=== PATIENT | female | born 1990 | race Caucasian/White ===

== ENCOUNTER 2017-04-15 14:19 | Inpatient (IN) | payer BC ==
[2017-04-15] MEDS ORDERED: Misoprostol 200 MCG Tab PO PRN (15:09)
[2017-04-15] MEDS ORDERED: Sodium Chloride 0.9% 10 ML Syringe FLUSH PRN (15:09)
[2017-04-15] MEDS ORDERED: Nalbuphine 10 MG/1 ML Vial IVPUSH PRN (15:09)
[2017-04-15] MEDS ORDERED: Carboprost Tromethamine 250 MCG/1 ML Amp IM PRN (15:09)
[2017-04-15] MEDS ORDERED: Butorphanol 1 MG/ML SDV IVPUSH PRN (15:09)
[2017-04-15] MEDS ORDERED: Sodium Chloride 0.9% 2.5 ML Syringe FLUSH PRN (15:09)
[2017-04-15] MEDS ORDERED: Lidocaine 1% 50 ML MDV INJECT PRN (15:09)
[2017-04-15] MEDS ORDERED: Water For Irrigation,Sterile 1,000 ML Container IRR PRN (15:09)
[2017-04-15] MEDS ORDERED: Methylergonovine 0.2 MG/1 ML Amp IM PRN (15:09)
[2017-04-15] MEDS ORDERED: Labetalol 100 MG/20 ML MDV IVPUSH PRN (15:14)
[2017-04-15] MEDS ORDERED: Oxytocin/Lactated Ringers 30 UNIT/500 ML BAG IV SCH ×2 (15:15→15:30)
[2017-04-15] MEDS ORDERED: Terbutaline 1 MG/ML SDV SUBCUT PRN (15:19)
[2017-04-15] MEDS ORDERED: Misoprostol 25 MCG (1/4 of 100 MCG) Tab VAG PRN (15:19)
[2017-04-15] MEDS ORDERED: Misoprostol 25 MCG (1/4 of 100 MCG) Tab VAG SCH (15:30)
[2017-04-15] MEDS: Lactated Ringers 1,000 ML IV SCH (22:00)
[2017-04-16] MEDS: Lactated Ringers 1,000 ML IV SCH ×3 (04:29→14:31)
[2017-04-16] MEDS ORDERED: fentaNYL 100 MCG/2 ML SDV ONE (10:49)
[2017-04-16] MEDS ORDERED: Ropivacaine 0.2% 2 MG/ML 20 ML SDV ONE (10:50)
--- NOTE | 2017-04-16 11:53 | PCM.PREANE ---
Preanesthetic Assessment - Anesthesia/Transfusion/Family Hx Anesthesia History: No Prior Anesthesia Family History of Anesthesia Reaction: No Transfusion History: No Prior Transfusion(s) - Review of Systems General: No Symptoms Pulmonary: No Symptoms Cardiovascular: No Symptoms Gastrointestinal: No symptoms Neurological: No Symptoms Other: Reports: None - Physical Assessment NPO Status Date: 04/16/17 NPO Status Time: 11:41 (cl liquids) Height: 1.68 m Weight: 82.554 kg ASA Class: 2 Mental Status: Alert & Oriented x3 Airway Class: Mallampati = 2 Dentition: Reports: Normal Dentition Thyro-Mental Finger Breadths: 3 Mouth Opening Finger Breadths: 3 ROM/Head Extension: Full Lungs: Clear to auscultation, Normal respiratory effort Cardiovascular: Regular Rate, Regular Rhythm - Lab Values: Laboratory Last Values WBC 12.50 K/uL (4.0-11.0) H 04/15/17 15:28 RBC 3.61 M/uL (4.30-5.90) L 04/15/17 15:28 Hgb 10.3 g/dL (12.0-16.0) L 04/15/17 15:28 Hct 31.3 % (36.0-46.0) L 04/15/17 15:28 MCV 86.7 fL (80.0-98.0) 04/15/17 15:28 MCH 28.5 pg (27.0-32.0) 04/15/17 15:28 MCHC 32.9 g/dL (31.0-37.0) 04/15/17 15:28 RDW Std Deviation 46.5 fl (28.0-62.0) 04/15/17 15:28 RDW Coeff of Danika 15 % (11.0-15.0) 04/15/17 15:28 Plt Count 286 K/uL (150-400) 04/15/17 15:28 MPV 9.70 fL (7.40-12.00) 04/15/17 15:28 Nucleated RBC % 0.0 /100WBC 04/15/17 15:28 Nucleated RBCs # 0 K/uL 04/15/17 15:28 Blood Type A POSITIVE 04/15/17 15:28 Antibody Screen NEGATIVE 04/15/17 15:28 - Allergies Allergies/Adverse Reactions: Allergies Allergy/AdvReac Type Severity Reaction Status Date / Time No Known Allergies Allergy Verified 04/15/17 15:08 - Blood Blood Available: Yes Product(s) Available: PRBC - Acknowledgements Anesthesia Type Planned: Epidural Pt an Appropriate Candidate for the Planned Anesthesia: Yes Alternatives and Risks of Anesthesia Discussed w Pt/Guardian: Yes Pt/Guardian Understands and Agrees with Anesthesia Plan: Yes PreAnesthesia Questionnaire Cardiovascular History: Reports: Hypertension, Other (See Below) Other Cardiovascular History: during only. negative labs PROBATION MANAGER History: Reports: , Spontaneous Musculoskeletal History: Reports: Other (See Below) (scoliosis) - CURRENT (IN HOUSE) MEDS Current Meds: Current Medications Butorphanol Tartrate (Stadol) 1 mg IVPUSH Q1H PRN PRN Reason: Pain Carboprost Tromethamine (Hemabate Ds) 250 mcg IM ASDIRECTED PRN PRN Reason: Post Hemorrhage Lactated Ringer's (Ringers, Lactated) 1,000 mls @ 150 mls/hr IV ASDIRECTED BABATUNDE Last Admin: 04/16/17 11:24 Dose: 150 mls/hr Oxytocin/Lactated Ringer's (Pitocin In Lr 30 Units/500 Ml) 30 unit in 500 mls @ 2 mls/hr IV TITRATE BABATUNDE; 2 MUNITS/MIN PRN Reason: Protocol Last Titration: 04/16/17 10:10 Dose: 18 munits/min, 18 mls/hr Labetalol HCl (Normodyne) 10 mg IVPUSH Q2H PRN; Protocol PRN Reason: Hypertension Lidocaine HCl (Xylocaine 1%) 50 ml INJECT .ONCE PRN PRN Reason: Laceration repair Methylergonovine Maleate (Methergine) 0.2 mg IM ASDIRECTED PRN PRN Reason: Post Hemorrhage Misoprostol (Cytotec) 200 mcg PO .ONCE PRN PRN Reason: Post Hemorrhage Misoprostol (Cytotec) 25 mcg VAG .ONCE BABATUNDE Last Admin: 04/15/17 15:45 Dose: 25 mcg Misoprostol (Cytotec) 25 mcg VAG Q6H PRN PRN Reason: Cervical Ripening Stop: 04/17/17 09:20 Last Admin: 04/15/17 21:55 Dose: 25 mcg Sodium Chloride (Saline Flush) 10 ml FLUSH ASDIRECTED PRN PRN Reason: Keep Vein Open Sodium Chloride (Saline Flush) 2.5 ml FLUSH ASDIRECTED PRN PRN Reason: Keep Vein Open Sterile Water (Sterile Water For Irrigation) 1,000 ml IRR ASDIRECTED PRN PRN Reason: delivery Terbutaline Sulfate (Brethine) 0.25 mg SUBCUT ASDIRECTED PRN PRN Reason: Tacysystole Discontinued Medications Fentanyl (Sublimaze) Confirm Administered Dose 100 mcg .ROUTE .STK-MED ONE Stop: 04/16/17 10:50 Oxytocin/Lactated Ringer's (Pitocin In Lr 30 Units/500 Ml) 30 unit in 500 mls @ 999 mls/hr IV TITRATE BABATUNDE PRN Reason: 999 MUNITS/MIN Stop: 04/15/17 15:46 Ropivacaine/Fentanyl/NS (Fentanyl 2 Mcg-Ropiv 0.2%-Ns) Confirm Administered Dose 100 mls @ as directed .ROUTE .STK-MED ONE Stop: 04/16/17 10:51 Nalbuphine HCl (Nubain) 10 mg IVPUSH Q1H PRN PRN Reason: Pain (severe 7-10) Stop: 04/15/17 17:10 Ropivacaine (Naropin 0.2%) Confirm Administered Dose 20 ml .ROUTE .STK-MED ONE Stop: 04/16/17 10:51 - Free Text/Narrative Note: Labor Analgesia/Epidural Procedure start date: 04/16/17 time: 1053 Attending provider aware Chart reviewed Permit signed Labs reviewed VS/ FHR reviewed Pt identified/ID band Pt assessed Risks/Benefits discussed and accepted Monitors in place (BP, HR, SPO2) Patient, Site, Procedure Verification, Pause. Pain "6-7/10" Fluid bolus infused (fluid type and amount): 1000 ml LR Position: Sitting @ 1100 Prep: Betadine X 3 Sterile Drape Intradermal Wheal: 3 ml 1% Lidocaine Regional placement level: L3-4 Needle: 17 g Tuohy Approach: Midline Technique: YASH glass syringe w 3 ml Sterile water YASH needle depth: 7 cm Paresthesia: None Fluid Obtained: None Catheter insertion time: 1105 Catheter depth at skin: 20 cm Test Dose Time: 1107 RX: 3 ml 1.5% lidocaine with 1:200,000 epi Response: Negative Loading dose Time: 5863-5119 RX: 100 mcg fentanyl followed by 5 ml 0.2% ropivacaine in 1-2 ml increments over 11 minutes Pt position: semi fowlers with FÉLIX Continuous infusion Start Time: 1130 RX: 100 ml 0.2% ropivacaine with 2 mcg/ml fetanyl Continuous infusion rate: 8 ml/hr CUPOLA OPERATOR INSULATION bolus option:5 ml every 15 minutes Pt response Post procedure pain level: "0/10" VS and FHR monitored in unit post placement (See OB traceview for documentation. ) Procedure end date: 04/16/17 time: 1158
[2017-04-16] MEDS ORDERED: hydrOXYzine Pamoate 25 MG Cap PO ONE (13:00)
--- NOTE | 2017-04-16 15:22 | PCM.SN ---
- Free Text/Narrative Note: Called to provide relief for breakthrough pain for patient with epidural. Pt being induced for hypertension. Is on Pitocin infusion and has had AROM in past couple of hours since receiving epidural. Pt was initially pain free after placement with BP range acceptable for tolerance. Pitocin gtt has been increased and patient has progressed in labor from 4-5 cm at time of placement to 7 cm now. position has also changed. Pt reports that pain is at "9/10" and is experiencing constant vaginal pressure with mild improvement between contractions. Legs are heavy but patient still able to move them. BP is WNL after LR bolus by nurse after initial contact regarding breakthrough pain. Pt is tearful and does admit to feeling exhausted. Pt given clinician bolus of 10 ml per pump. VS monitored and LR bolus continued. 1528: Pt now comfortable and dosing off to sleep. VSS. at bedside offering good support to pt. Discussed pain management with epidural and advised that patient try to sleep now that comfortable. If becomes uncomfortable again, use TAX COMPLIANCE REPRESENTATIVE button every 15 minutes until comfortable again. Nurse also updated on plan for patient and advised to closely monitor BP and notify anesthesia is becomes hypotensive unresponsive to fluid bolus.
--- NOTE | 2017-04-16 17:27 | PCM.SN ---
- Free Text/Narrative Note: Called to refill epidural infusion. Pt now dilated to 9 cm. States is comfortable with epidural infusion and has been using CONCRETE WALL GRINDER OPERATOR bolus. VSS. Pump refilled with same medication and settings.
[2017-04-16] MEDS ORDERED: Bisacodyl 10 MG Supp RECTAL PRN (19:43)
[2017-04-16] MEDS ORDERED: Witch Hazel Medicated Pads 40/Jar TOP PRN (19:43)
[2017-04-16] MEDS ORDERED: Acetaminophen 500 MG Tab PO PRN (19:43)
[2017-04-16] MEDS ORDERED: Benzocaine/Menthol 20%-0.5% Spray 78 GM Cannister TOP PRN (19:43)
[2017-04-16] MEDS ORDERED: Lanolin 100% Cream 7 GM Tube TOP PRN (19:43)
[2017-04-16] MEDS ORDERED: oxyCODONE 5 MG Tab PO PRN (19:43)
--- NOTE | 2017-04-16 21:13 | OR ---
SURGEON: Shamika Briones M.D. DATE OF PROCEDURE: 04/16/2017 PREOPERATIVE DIAGNOSES: 1. Thirty-eight week intrauterine . 2. Gestational hypertension. POSTOPERATIVE DIAGNOSIS: 1. Thirty-eight week intrauterine . 2. Gestational hypertension. PROCEDURE: Cytotec and Pitocin induction of labor, term spontaneous vaginal delivery. ANESTHESIA: Epidural. ESTIMATED BLOOD LOSS: Less than 300 mL. FINDINGS: Live born female, score 7 and 9, weighing 3270 g. Placenta spontaneous, Maria intact with 3 vessels. Perineum intact. BRIEF HISTORY: This is a 27-year-old female, she is G1, P0. She presented for her clinical appointment at 37 and 6/7th weeks' gestation with significantly elevated blood pressures. On repeat check, they remained abnormally high. She has had blood pressures that have been increasing over the past three weeks. She has been on modified bedrest at home. She did have preeclamptic labs which were normal with a normal 24 urine collection. However due to the severe range of her blood pressures in the clinic, I did recommend proceeding with induction of labor. She received 2 doses of Cytotec. She had category 1 heart tones. She was then started on Pitocin. She received an epidural for pain control. When she was 4+ cm dilated, artificial rupture of membranes was performed, clear fluid was noted. Category one heart tones remained throughout labor, she progressed to complete. NARRATIVE: With the patient in dorsal lithotomy position, under adequate epidural analgesia, the patient pushed over a 1-1/2 hour time period to a 5+ station. Approximately 15 minutes prior to delivery, she did have a single elevated temperature, otherwise she remained afebrile throughout labor. Therefore, antibiotics were not started as delivery was eminent. She continued to push, the head was delivered spontaneously and atraumatically over the perineum with support with subsequent delivery of the 's shoulders and body without any difficulty. The infant was bulb suctioned by nose and mouth. The cord was clamped x2 and cut and the infant was handed to the mother in the presence of the nurse attending delivery. The infant is a liveborn female, score 7 and 9, weighing 3270 g. Cord blood was collected for cord ABGs as well as routine cord blood sampling. Pitocin was initiated after delivery of the to assist with delivery of the placenta which was delivered spontaneously Maria intact with 3 vessels. Upon inspection of the pelvis and perineum, there were no periurethral, vaginal sidewall, cervical, rectal, or perineal lacerations. The uterus remained somewhat boggy despite fundal massage and IV Pitocin. Therefore, she was given Hemabate as Methergine was contraindicated due to hypertension and following the Hemabate, her uterus remained firm with minimal flow. Final sponge, needle, instrument count were correct. There were no known complications. and mother remained in LDRP in good condition. TYSON PRITCHARD /[id number]
[2017-04-16] MEDS: Docusate Sodium 100 MG Cap PO PRN (22:37)
[2017-04-17] MEDS: Ibuprofen 800 MG Tab PO PRN ×3 (08:08→22:22)
[2017-04-17] MEDS: Docusate Sodium 100 MG Cap PO PRN (08:08)
--- NOTE | 2017-04-17 08:19 | PCM.PNPP ---
- General Info Date of Service: 04/17/17 Functional Status: Reports: pain controlled, tolerating diet, ambulating, urinating, other (difficulty with , nipples are flat. ) - Review of Systems General: Reports: No Symptoms HEENT: Reports: no symptoms Pulmonary: Reports: no symptoms Cardiovascular: Reports: No Symptoms Gastrointestinal: Reports: No symptoms Genitourinary: Reports: no symptoms Musculoskeletal: Reports: no symptoms Skin: Reports: no symptoms Neurological: Reports: No Symptoms Psychiatric: Reports: no symptoms - Patient Data Vital Signs - most recent: Last Vital Signs Temp 37.4 C 04/17/17 04:00 Pulse 69 04/17/17 04:00 Resp 18 04/17/17 04:00 BP 126/73 04/17/17 04:00 Pulse Ox 96 04/17/17 04:00 Weight - most recent: 82.554 kg Lab Results - last 24 hrs: Laboratory Results - last 24 hr 04/17/17 Range/Units 05:45 Hgb 9.6 L (12.0-16.0) g/dL Hct 28.4 L (36.0-46.0) % Med Orders - Current: Current Medications Acetaminophen (Tylenol Extra Strength) 1,000 mg PO Q4H PRN PRN Reason: Pain Benzocaine/Menthol (Dermoplast Pain Relief 20%-0.5% [place]) 78 gm TOP ASDIRECTED PRN PRN Reason: Perineal Comfort Measure Last Admin: 04/16/17 22:38 Dose: 1 canister Bisacodyl (Dulcolax) 10 mg RECTAL .ONCE PRN PRN Reason: Constipation Docusate Sodium (Colace) 100 mg PO BID PRN PRN Reason: Constipation Last Admin: 04/17/17 08:08 Dose: 100 mg Emollient Ointment (Lansinoh Hpa) 0 gm TOP ASDIRECTED PRN PRN Reason: Sore Nipples Last Admin: 04/16/17 22:37 Dose: 1 tube Ibuprofen (Motrin) 800 mg PO Q6H PRN PRN Reason: Pain Last Admin: 04/17/17 08:08 Dose: 800 mg Oxycodone HCl (Oxycodone) 5 mg PO Q2H PRN PRN Reason: Pain Witch Afua (Tucks) 1 pad TOP ASDIRECTED PRN PRN Reason: comfort care Last Admin: 04/16/17 22:37 Dose: 1 tub Discontinued Medications Butorphanol Tartrate (Stadol) 1 mg IVPUSH Q1H PRN PRN Reason: Pain Carboprost Tromethamine (Hemabate Ds) 250 mcg IM ASDIRECTED PRN PRN Reason: Post Hemorrhage Last Admin: 04/16/17 19:29 Dose: 250 mcg Fentanyl (Sublimaze) Confirm Administered Dose 100 mcg .ROUTE .STK-MED ONE Stop: 04/16/17 10:50 Hydroxyzine Pamoate (Vistaril) 25 mg PO ONETIME ONE Stop: 04/16/17 13:01 Last Admin: 04/16/17 12:55 Dose: 25 mg Lactated Ringer's (Ringers, Lactated) 1,000 mls @ 150 mls/hr IV ASDIRECTED BABATUNDE Last Admin: 04/16/17 14:31 Dose: 150 mls/hr Oxytocin/Lactated Ringer's (Pitocin In Lr 30 Units/500 Ml) 30 unit in 500 mls @ 999 mls/hr IV TITRATE BABATUNDE PRN Reason: 999 MUNITS/MIN Stop: 04/15/17 15:46 Oxytocin/Lactated Ringer's (Pitocin In Lr 30 Units/500 Ml) 30 unit in 500 mls @ 2 mls/hr IV TITRATE BABATUNDE; 2 MUNITS/MIN PRN Reason: Protocol Last Titration: 04/16/17 14:06 Dose: 16 munits/min, 16 mls/hr Ropivacaine/Fentanyl/NS (Fentanyl 2 Mcg-Ropiv 0.2%-Ns) Confirm Administered Dose 100 mls @ as directed .ROUTE .STK-MED ONE Stop: 04/16/17 10:51 Ropivacaine/Fentanyl/NS (Fentanyl 2 Mcg-Ropiv 0.2%-Ns) Confirm Administered Dose 100 mls @ as directed .ROUTE .STK-MED ONE Stop: 04/16/17 17:10 Labetalol HCl (Normodyne) 10 mg IVPUSH Q2H PRN; Protocol PRN Reason: Hypertension Lidocaine HCl (Xylocaine 1%) 50 ml INJECT .ONCE PRN PRN Reason: Laceration repair Methylergonovine Maleate (Methergine) 0.2 mg IM ASDIRECTED PRN PRN Reason: Post Hemorrhage Misoprostol (Cytotec) 200 mcg PO .ONCE PRN PRN Reason: Post Hemorrhage Misoprostol (Cytotec) 25 mcg VAG .ONCE BABATUNDE Last Admin: 04/15/17 15:45 Dose: 25 mcg Misoprostol (Cytotec) 25 mcg VAG Q6H PRN PRN Reason: Cervical Ripening Stop: 04/17/17 09:20 Last Admin: 04/15/17 21:55 Dose: 25 mcg Nalbuphine HCl (Nubain) 10 mg IVPUSH Q1H PRN PRN Reason: Pain (severe 7-10) Stop: 04/15/17 17:10 Ropivacaine (Naropin 0.2%) Confirm Administered Dose 20 ml .ROUTE .STK-MED ONE Stop: 04/16/17 10:51 Sodium Chloride (Saline Flush) 10 ml FLUSH ASDIRECTED PRN PRN Reason: Keep Vein Open Sodium Chloride (Saline Flush) 2.5 ml FLUSH ASDIRECTED PRN PRN Reason: Keep Vein Open Sterile Water (Sterile Water For Irrigation) 1,000 ml IRR ASDIRECTED PRN PRN Reason: delivery Terbutaline Sulfate (Brethine) 0.25 mg SUBCUT ASDIRECTED PRN PRN Reason: Tacysystole - Interaction Infant Disposition, : in Room with Family Interaction: Holding Feeding: Attempted ; Nursed Fair/Poor Support Person: - Recovery Exam Fundal Tone: Firm Fundal Level: 1 Fingerbreadths Below Umbilicus Fundal Placement: Midline Lochia Amount: Small Lochia Color: Rubra/Red Perineum Description: Intact, Minimal Bruising/Swelling Bladder Status: Voiding Urinary Elimination: Voided - Exam General: alert, oriented HEENT: Pupils equal Neck: supple Lungs: Clear to auscultation, Normal respiratory effort Cardiovascular: Regular Rate, Regular Rhythm Abdomen: bowel sounds present, soft, no tenderness, no distension Extremities: no edema Skin: warm, dry, intact Neurological: no new focal deficit Psy/Mental Status: alert, normal affect, normal mood - Problem List & Annotations (1) Transient hypertension of , with delivery SNOMED Code(s): 431087857 Code(s): O13.9 - GESTATIONAL HTN W/O SIGNIFICANT PROTEINURIA, UNSP TRIMESTER Status: Acute Current Visit: Yes (2) Vaginal delivery SNOMED Code(s): 799515028 Code(s): O80 - ENCOUNTER FOR FULL-TERM UNCOMPLICATED DELIVERY Status: Acute Current Visit: Yes - Problem List Review Problem List Initiated/Reviewed/Updated: Yes - My Orders Last 24 Hours: My Active Orders 04/16/17 19:43 Acetaminophen [Tylenol Extra Strength] 1,000 mg PO Q4H PRN Benzocaine/Menthol [Dermoplast Pain Relief 20%-0.5% [place]] 78 gm TOP ASDIRECTED PRN Bisacodyl [Dulcolax] 10 mg RECTAL .ONCE PRN Docusate Sodium [Colace] 100 mg PO BID PRN Ibuprofen [Motrin] 800 mg PO Q6H PRN Lanolin [Lansinoh HPA] See Dose Instructions TOP ASDIRECTED PRN Witch Afua [Tucks] 1 pad TOP ASDIRECTED PRN oxyCODONE 5 mg PO Q2H PRN Resuscitation Status Routine 04/16/17 19:44 Patient Status [ADT] Routine May Shower [RC] ASDIRECTED Up ad Tanya [RC] ASDIRECTED Vital Signs [RC] PER UNIT ROUTINE Assess Lochia [WOMSER] Per Unit Routine Assess Uterine Involution [WOMSER] Per Unit Routine Perineal Care [OM.PC] Per Unit Routine Peripheral IV Discontinue [OM.PC] Routine 04/17/17 Breakfast Regular Diet [DIET] - Assessment Assessment:: PPD#1 after , stable minimal lochia, needs asset protection assistant with , may consider pump to help with inverted nipple. - Plan Plan:: Continue care.
--- NOTE | 2017-04-17 22:03 | PCM48HPAN ---
Post Anesthesia Note - EVALUATION WITHIN 48HRS OF ANESTHETIC Vital Signs in Normal Range: Yes Patient Participated in Evaluation: Yes Respiratory Function Stable: Yes Airway Patent: Yes Cardiovascular Function Stable: Yes Hydration Status Stable: Yes Pain Control Satisfactory: Yes Nausea and Vomiting Control Satisfactory: Yes Mental Status Recovered: Yes
[2017-04-18] MEDS: Ibuprofen 800 MG Tab PO PRN (04:21)
--- NOTE | 2017-04-18 08:32 | PCM.PNPP ---
<Mery Rueda - Last Filed: 04/18/17 08:27> - General Info Date of Service: 04/18/17 Functional Status: Reports: pain controlled, tolerating diet, ambulating, urinating - Review of Systems General: Denies: Fever, Weakness, Fatigue Pulmonary: Denies: shortness of breath, pleuritic chest pain, cough Cardiovascular: Denies: Chest Pain, Palpitations, Dyspnea on Exertion Gastrointestinal: Denies: Abdominal pain Genitourinary: Denies: dysuria Psychiatric: Reports: no symptoms - General Info Date of Service: 04/18/17 - Patient Data Vital Signs - most recent: Last Vital Signs Temp 36.6 C 04/18/17 04:00 Pulse 71 04/18/17 04:00 Resp 18 04/18/17 04:00 BP 132/75 04/18/17 04:00 Pulse Ox 97 04/17/17 20:49 Weight - most recent: 82.554 kg Med Orders - Current: Current Medications Acetaminophen (Tylenol Extra Strength) 1,000 mg PO Q4H PRN PRN Reason: Pain Benzocaine/Menthol (Dermoplast Pain Relief 20%-0.5% [place]) 78 gm TOP ASDIRECTED PRN PRN Reason: Perineal Comfort Measure Last Admin: 04/16/17 22:38 Dose: 1 canister Bisacodyl (Dulcolax) 10 mg RECTAL .ONCE PRN PRN Reason: Constipation Docusate Sodium (Colace) 100 mg PO BID PRN PRN Reason: Constipation Last Admin: 04/17/17 08:08 Dose: 100 mg Emollient Ointment (Lansinoh Hpa) 0 gm TOP ASDIRECTED PRN PRN Reason: Sore Nipples Last Admin: 04/16/17 22:37 Dose: 1 tube Ibuprofen (Motrin) 800 mg PO Q6H PRN PRN Reason: Pain Last Admin: 04/18/17 04:21 Dose: 800 mg Oxycodone HCl (Oxycodone) 5 mg PO Q2H PRN PRN Reason: Pain Witch Afua (Tucks) 1 pad TOP ASDIRECTED PRN PRN Reason: comfort care Last Admin: 04/16/17 22:37 Dose: 1 tub Discontinued Medications Butorphanol Tartrate (Stadol) 1 mg IVPUSH Q1H PRN PRN Reason: Pain Carboprost Tromethamine (Hemabate Ds) 250 mcg IM ASDIRECTED PRN PRN Reason: Post Hemorrhage Last Admin: 04/16/17 19:29 Dose: 250 mcg Fentanyl (Sublimaze) Confirm Administered Dose 100 mcg .ROUTE .STK-MED ONE Stop: 04/16/17 10:50 Hydroxyzine Pamoate (Vistaril) 25 mg PO ONETIME ONE Stop: 04/16/17 13:01 Last Admin: 04/16/17 12:55 Dose: 25 mg Lactated Ringer's (Ringers, Lactated) 1,000 mls @ 150 mls/hr IV ASDIRECTED BABATUNDE Last Admin: 04/16/17 14:31 Dose: 150 mls/hr Oxytocin/Lactated Ringer's (Pitocin In Lr 30 Units/500 Ml) 30 unit in 500 mls @ 999 mls/hr IV TITRATE BABATUNDE PRN Reason: 999 MUNITS/MIN Stop: 04/15/17 15:46 Oxytocin/Lactated Ringer's (Pitocin In Lr 30 Units/500 Ml) 30 unit in 500 mls @ 2 mls/hr IV TITRATE BABATUNDE; 2 MUNITS/MIN PRN Reason: Protocol Last Titration: 04/16/17 14:06 Dose: 16 munits/min, 16 mls/hr Ropivacaine/Fentanyl/NS (Fentanyl 2 Mcg-Ropiv 0.2%-Ns) Confirm Administered Dose 100 mls @ as directed .ROUTE .STK-MED ONE Stop: 04/16/17 10:51 Ropivacaine/Fentanyl/NS (Fentanyl 2 Mcg-Ropiv 0.2%-Ns) Confirm Administered Dose 100 mls @ as directed .ROUTE .STK-MED ONE Stop: 04/16/17 17:10 Labetalol HCl (Normodyne) 10 mg IVPUSH Q2H PRN; Protocol PRN Reason: Hypertension Lidocaine HCl (Xylocaine 1%) 50 ml INJECT .ONCE PRN PRN Reason: Laceration repair Methylergonovine Maleate (Methergine) 0.2 mg IM ASDIRECTED PRN PRN Reason: Post Hemorrhage Misoprostol (Cytotec) 200 mcg PO .ONCE PRN PRN Reason: Post Hemorrhage Misoprostol (Cytotec) 25 mcg VAG .ONCE BABATUNDE Last Admin: 04/15/17 15:45 Dose: 25 mcg Misoprostol (Cytotec) 25 mcg VAG Q6H PRN PRN Reason: Cervical Ripening Stop: 04/17/17 09:20 Last Admin: 04/15/17 21:55 Dose: 25 mcg Nalbuphine HCl (Nubain) 10 mg IVPUSH Q1H PRN PRN Reason: Pain (severe 7-10) Stop: 04/15/17 17:10 Ropivacaine (Naropin 0.2%) Confirm Administered Dose 20 ml .ROUTE .STK-MED ONE Stop: 04/16/17 10:51 Sodium Chloride (Saline Flush) 10 ml FLUSH ASDIRECTED PRN PRN Reason: Keep Vein Open Sodium Chloride (Saline Flush) 2.5 ml FLUSH ASDIRECTED PRN PRN Reason: Keep Vein Open Sterile Water (Sterile Water For Irrigation) 1,000 ml IRR ASDIRECTED PRN PRN Reason: delivery Terbutaline Sulfate (Brethine) 0.25 mg SUBCUT ASDIRECTED PRN PRN Reason: Tacysystole - Infant Interaction Disposition, : in Room with Family Infant Interaction: Holding Infant Infant Feeding: Attempted ; Nursed Fair/Poor Support Person: - Recovery Exam Fundal Tone: Firm Fundal Level: 1 Fingerbreadths Below Umbilicus Fundal Placement: Midline Lochia Amount: Scant Lochia Color: Rubra/Red Perineum Description: Intact, Minimal Bruising/Swelling Episiotomy/Laceration: None Bladder Status: Voiding Urinary Elimination: Voided - Exam General: alert, oriented Neck: supple Lungs: Clear to auscultation, Normal respiratory effort Cardiovascular: Regular Rate, Regular Rhythm Abdomen: bowel sounds present, soft, no tenderness, no distension Extremities: edema (trace) Psy/Mental Status: alert, normal affect, normal mood - Problem List & Annotations (1) Vaginal delivery SNOMED Code(s): 114423334 Code(s): O80 - ENCOUNTER FOR FULL-TERM UNCOMPLICATED DELIVERY Status: Acute Current Visit: Yes - Problem List Review Problem List Initiated/Reviewed/Updated: Yes - Assessment Assessment:: PPD#2 after , stable minimal lochia and pain. Discharge home today. - Plan Plan:: Discharge home today. Nothing in the vagina for 6 weeks. Continue PNV while breast feeding. Can use OTC ibuprofen/tylenol as needed for pain. Instructed patient to call if she develops fever greater than 101 or bleeding through a large pad an hour. F/u with [facility] in 6 weeks. <Shamika Briones - Last Filed: 04/18/17 09:25> - Patient Data Vital Signs - most recent: Last Vital Signs Temp 36.6 C 04/18/17 08:00 Pulse 63 04/18/17 08:00 Resp 16 04/18/17 08:00 BP 123/83 04/18/17 08:00 Pulse Ox 98 04/18/17 08:00 Med Orders - Current: Current Medications Acetaminophen (Tylenol Extra Strength) 1,000 mg PO Q4H PRN PRN Reason: Pain Benzocaine/Menthol (Dermoplast Pain Relief 20%-0.5% [place]) 78 gm TOP ASDIRECTED PRN PRN Reason: Perineal Comfort Measure Last Admin: 04/16/17 22:38 Dose: 1 canister Bisacodyl (Dulcolax) 10 mg RECTAL .ONCE PRN PRN Reason: Constipation Docusate Sodium (Colace) 100 mg PO BID PRN PRN Reason: Constipation Last Admin: 04/18/17 08:56 Dose: 100 mg Emollient Ointment (Lansinoh Hpa) 0 gm TOP ASDIRECTED PRN PRN Reason: Sore Nipples Last Admin: 04/16/17 22:37 Dose: 1 tube Ibuprofen (Motrin) 800 mg PO Q6H PRN PRN Reason: Pain Last Admin: 04/18/17 04:21 Dose: 800 mg Oxycodone HCl (Oxycodone) 5 mg PO Q2H PRN PRN Reason: Pain Witch [place]ua (Tucks) 1 pad TOP ASDIRECTED PRN PRN Reason: comfort care Last Admin: 04/16/17 22:37 Dose: 1 tub Discontinued Medications Butorphanol Tartrate (Stadol) 1 mg IVPUSH Q1H PRN PRN Reason: Pain Carboprost Tromethamine (Hemabate Ds) 250 mcg IM ASDIRECTED PRN PRN Reason: Post Hemorrhage Last Admin: 04/16/17 19:29 Dose: 250 mcg Fentanyl (Sublimaze) Confirm Administered Dose 100 mcg .ROUTE .STK-MED ONE Stop: 04/16/17 10:50 Hydroxyzine Pamoate (Vistaril) 25 mg PO ONETIME ONE Stop: 04/16/17 13:01 Last Admin: 04/16/17 12:55 Dose: 25 mg Lactated Ringer's (Ringers, Lactated) 1,000 mls @ 150 mls/hr IV ASDIRECTED BABATUNDE Last Admin: 04/16/17 14:31 Dose: 150 mls/hr Oxytocin/Lactated Ringer's (Pitocin In Lr 30 Units/500 Ml) 30 unit in 500 mls @ 999 mls/hr IV TITRATE BABATUNDE PRN Reason: 999 MUNITS/MIN Stop: 04/15/17 15:46 Oxytocin/Lactated Ringer's (Pitocin In Lr 30 Units/500 Ml) 30 unit in 500 mls @ 2 mls/hr IV TITRATE BABATUNDE; 2 MUNITS/MIN PRN Reason: Protocol Last Titration: 04/16/17 14:06 Dose: 16 munits/min, 16 mls/hr Ropivacaine/Fentanyl/NS (Fentanyl 2 Mcg-Ropiv 0.2%-Ns) Confirm Administered Dose 100 mls @ as directed .ROUTE .STK-MED ONE Stop: 04/16/17 10:51 Ropivacaine/Fentanyl/NS (Fentanyl 2 Mcg-Ropiv 0.2%-Ns) Confirm Administered Dose 100 mls @ as directed .ROUTE .STK-MED ONE Stop: 04/16/17 17:10 Labetalol HCl (Normodyne) 10 mg IVPUSH Q2H PRN; Protocol PRN Reason: Hypertension Lidocaine HCl (Xylocaine 1%) 50 ml INJECT .ONCE PRN PRN Reason: Laceration repair Methylergonovine Maleate (Methergine) 0.2 mg IM ASDIRECTED PRN PRN Reason: Post Hemorrhage Misoprostol (Cytotec) 200 mcg PO .ONCE PRN PRN Reason: Post Hemorrhage Misoprostol (Cytotec) 25 mcg VAG .ONCE BABATUNDE Last Admin: 04/15/17 15:45 Dose: 25 mcg Misoprostol (Cytotec) 25 mcg VAG Q6H PRN PRN Reason: Cervical Ripening Stop: 04/17/17 09:20 Last Admin: 04/15/17 21:55 Dose: 25 mcg Nalbuphine HCl (Nubain) 10 mg IVPUSH Q1H PRN PRN Reason: Pain (severe 7-10) Stop: 04/15/17 17:10 Ropivacaine (Naropin 0.2%) Confirm Administered Dose 20 ml .ROUTE .[facility]-MED ONE Stop: 04/16/17 10:51 Sodium Chloride (Saline Flush) 10 ml FLUSH ASDIRECTED PRN PRN Reason: Keep Vein Open Sodium Chloride (Saline Flush) 2.5 ml FLUSH ASDIRECTED PRN PRN Reason: Keep Vein Open Sterile Water (Sterile Water For Irrigation) 1,000 ml IRR ASDIRECTED PRN PRN Reason: delivery Terbutaline Sulfate (Brethine) 0.25 mg SUBCUT ASDIRECTED PRN PRN Reason: Tacysystole - Problem List & Annotations (1) Transient hypertension of , with delivery SNOMED Code(s): 134830366 Code(s): O13.9 - GESTATIONAL HTN W/O SIGNIFICANT PROTEINURIA, UNSP TRIMESTER Status: Acute Current Visit: Yes (2) Vaginal delivery SNOMED Code(s): 459980694 Code(s): O80 - ENCOUNTER FOR FULL-TERM UNCOMPLICATED DELIVERY Status: Acute Current Visit: Yes - Plan Plan:: Patient has been evaluated by my and I agree with above.
[2017-04-18 08:51] VITALS: BP 123/83
[2017-04-18] MEDS: Docusate Sodium 100 MG Cap PO PRN (08:56)
== END 2017-04-18 10:35 | disposition home or self-care (01) | DRG 560 ==
LOC: MW.OBCHECK 14:19 → MW.OB 14:20 → OBSVTOIN 04-16 19:16 → MW.OB 04-16 23:38
PROVIDERS: ADMIT Obstetrics & Gynecology; ATTEND Obstetrics & Gynecology
PROC: 10E0XZZ Delivery of Products of Conception, External Approach (ICD-10-PCS; principal; 2017-04-16)
PROC: 3E0P7GC Introduction of Other Therapeutic Substance into Female Reproductive, Via Natural or Artificial Opening (ICD-10-PCS; 2017-04-16)
PROC: 3E033VJ Introduction of Other Hormone into Peripheral Vein, Percutaneous Approach (ICD-10-PCS; 2017-04-16)
PROC: 10907ZC Drainage of Amniotic Fluid, Therapeutic from Products of Conception, Via Natural or Artificial Opening (ICD-10-PCS; 2017-04-16)
DX: O13.4 Gestational [pregnancy-induced] hypertension without significant proteinuria, complicating childbirth (principal); Z3A.37 37 weeks gestation of pregnancy; Z37.0 Single live birth
CPT/HCPCS: 01967; 01996; 36415; 59025; 85014; 85018; 85027; 86850; 86900; 86901; 88305; A9270-GY; J2795; J3010; J7120